=== PATIENT | male | born 1960 | race Caucasian/White ===

== ENCOUNTER 2021-11-20 07:41 | Emergency (ER) | payer OTHER ==
[2021-11-20] MEDS: Sodium Chloride 0.9% 10 ML Syringe FLUSH PRN (08:14)
[2021-11-20] MEDS: Sodium Chloride 0.9% 2.5 ML Syringe FLUSH PRN (08:14)
[2021-11-20 08:36] LABS: BLOOD UREA NITROGEN,BUN 18 mg/dL (7.0-18.0); CARBON DIOXIDE,CO2 24.5 mmol/L (21.0-32.0); CHLORIDE,CL 103 mmol/L (98-107); GLUCOSE RANDOM 119 mg/dL (74-106); POTASSIUM,K 4.1 mmol/L (3.5-5.1); SODIUM,NA 137 mmol/L (136-148)
[2021-11-20 08:55] LABS: CORONAVIRUS COVID-19 NAA NEGATIVE (NEGATIVE); INFLUENZA A NAA NEGATIVE (NEGATIVE); INFLUENZA B NAA NEGATIVE (NEGATIVE)
[2021-11-20] MEDS: LORazepam 2 MG/ML SDV IVPUSH ONE (10:10)
[2021-11-20] MEDS: Furosemide 40 MG/4 ML VIAL IVPUSH ONE (10:10)
[2021-11-20] MEDS: Iopamidol 755 MG/ML 500 ML Multipack Bottle IVPUSH STA (10:36)
== END 2021-11-20 13:40 | disposition home or self-care (01) ==
LOC: MW.ED 07:41
DX: I50.9 Heart failure, unspecified (principal); Z88.2 Allergy status to sulfonamides; Z20.822 Contact with and (suspected) exposure to COVID-19
CPT/HCPCS: 0240U; 36415; 71045; 71275; 80053; 83880; 84484; 85025; 85379; 93005; 96374; 96375; 99285; J1940; J2060; Q9967